=== PATIENT | female | born 1980 | race Two or more races ===

== ENCOUNTER 2020-08-05 04:34 | Emergency (ER) | payer SELFPAY ==
[~2020-08-05] VITALS: Ht 157.5 cm; Wt 88.6 kg
[2020-08-05 04:34] VITALS: BP 154/94
== END 2020-08-05 05:00 | disposition left against medical advice (07) ==
LOC: ER 04:34
DX: M54.5 Low back pain (principal); Z53.21 Procedure and treatment not carried out due to patient leaving prior to being seen by health care provider

== ENCOUNTER 2020-11-12 12:00 | Emergency (ER) | payer OTHER ==
[~2020-11-12] VITALS: Ht 157.5 cm; Wt 92.2 kg
[2020-11-12 12:52] VITALS: BP 167/88
[2020-11-12] MEDS ORDERED: LIDO:MAALOX 1:1 20 ML SINGLE DOSE. PO ONE (13:15)
[2020-11-12] MEDS ORDERED: IV NORMAL SALINE 1,000ML 1,000 ML IV ONE (13:15)
[2020-11-12] MEDS ORDERED: ONDANSETRON PF 4 MG/2 ML VIAL. IVP ONE (13:15)
[2020-11-12 13:41] LABS: BASO # 0.1 x10^3/uL (0.0-0.2); BASO % 1 % (0-3); EOS # 0.2 x10^3/uL (0.0-0.7); EOS % 3 % (0-3); HEMATOCRIT 39.6 % (36.0-47.0); HEMOGLOBIN 13.4 g/dL (12.0-15.5); LYMPH # 2.1 x10^3/uL (1.0-4.8); LYMPH % 23 % (24-48); MEAN CORPUSCULAR HEMOGLOBIN 29 pg (25-35); MEAN CORPUSCULAR HGB CONC 34 g/dL (31-37); MEAN CORPUSCULAR VOLUME 87 fL (79-100); MONO # 0.6 x10^3/uL (0.0-1.1); MONO % 6 % (0-9); NEUT # 6.1 x10^3uL (1.8-7.7); NEUT % 67 % (31-73); PLATELET COUNT 374 x10^3/uL (140-400); RED BLOOD COUNT 4.57 x10^6/uL (3.50-5.40); RED CELL DISTRIBUTION WIDTH 13.9 % (11.5-14.5); WHITE BLOOD COUNT 9.1 x10^3/uL (4.0-11.0)
[2020-11-12 13:54] LABS: ALBUMIN 3.8 g/dL (3.4-5.0); ALBUMIN/GLOBULIN RATIO 0.9 (1.0-1.7); CALCIUM 8.4 mg/dL (8.5-10.1); CREATININE 0.8 mg/dL (0.6-1.0); GFR 79.4; POTASSIUM 3.9 mmol/L (3.5-5.1); TOTAL BILIRUBIN 0.5 mg/dL (0.2-1.0)
[2020-11-12] MEDS ORDERED: ESOM40CA PO (14:18)
[2020-11-12] MEDS ORDERED: ONDA4TAB7 PO (14:18)
--- NOTE | 2020-11-12 14:20 | PHYS DOC ---
Past History Past Medical History: No Pertinent History, Other Additional Past Medical Histor: prev back injury 4 yrs ago(no prob for 2 yrs) (SUMEET MEDINA APRN) Past Surgical History: , Tubal ligation, Other Additional Past Surgical Histo: bladder suspension (SUMEET MEDINA APRN) Alcohol Use: None (SUMEET MEDINA APRN) General Adult EDM: Chief Complaint: ABDOMINAL PAIN HPI: HPI: Patient is a-year-old female who presents with epigastric burning pain for the last 3 months. Patient states that pain is worse when she lays down. Patient states that she had some vomiting this morning and noticed blood in her vomit. Patient also reports diarrhea for the last 5 days. Patient states that she has been taking Tums, Mylanta and recently started taking Prilosec with little relief of symptoms. Patient reports she has a appointment with her PCP on Monday for a follow-up and possible GI consult. Patient denies health history. (SUMEET MEDINA APRN) Review of Systems: Review of Systems: Constitutional: Denies fever or chills Eyes: Denies change in visual acuity HENT: Denies nasal congestion or sore throat Respiratory: Denies cough or shortness of breath Cardiovascular: Denies chest pain or edema GI: Reports epigastric, burning, abdominal pain, nausea, vomiting,diarrhea : Denies dysuria Musculoskeletal: Denies back pain or joint pain Integument: Denies rash Neurologic: Denies headache, focal weakness or sensory changes Endocrine: Denies polyuria or polydipsia Lymphatic: Denies swollen glands Psychiatric: Denies depression or anxiety (SUMEET MEDINA APRN) Current Medications: Current Meds: Current Medications Medications (Trade) Dose Ordered Sig/[facility] Start Time Stop Time Status Last Admin Dose Admin Multi-Ingredient Mouthwash/Gargle (Gi Cocktail) 20 ml 1X ONCE 11/12/20 13:15 11/12/20 13:18 DC 11/12/20 13:32 20 ML Ondansetron HCl (Zofran) 4 mg 1X ONCE 11/12/20 13:15 11/12/20 13:18 DC 11/12/20 13:32 4 MG Sodium Chloride 1,000 ml @ 1,000 mls/hr 1X ONCE 11/12/20 13:15 11/12/20 14:14 11/12/20 13:33 1,000 MLS/HR (SUMEET MEDINA APRN) Allergies: Allergies: Allergies Coded Allergies Type Severity Reaction Last Updated Verified povidone-iodine Allergy Intermediate 08/05/20 Yes soap Allergy Intermediate 08/05/20 Yes (SUMEET MEDINA APRN) Physical Exam: PE: Constitutional: Well developed, well nourished, no acute distress, non-toxic appearance. [] HENT: Normocephalic, atraumatic, bilateral external ears normal, oropharynx moist, no oral exudates, nose normal. [] Eyes: PERRLA, EOMI, conjunctiva normal, no discharge. [] Neck: Normal range of motion, no tenderness, supple, no stridor. [] Cardiovascular:Heart rate regular rhythm, no murmur [] Lungs & Thorax: Bilateral breath sounds clear to auscultation [] Abdomen: Bowel sounds normal, soft, no tenderness, no masses, no pulsatile masses. [] Skin: Warm, dry, no erythema, no rash. [] Back: No tenderness, no CVA tenderness. [] Extremities: No tenderness, no cyanosis, no clubbing, ROM intact, no edema. [] Neurologic: Alert and oriented X 3, normal motor function, normal sensory function, no focal deficits noted. [] Psychologic: Affect normal, judgement normal, mood normal. [] (SUMEET MEDINA APRN) Current Patient Data: Labs: Laboratory Tests Test 11/12/20 13:30 White Blood Count 9.1 x10^3/uL (4.0-11.0) Red Blood Count 4.57 x10^6/uL (3.50-5.40) Hemoglobin 13.4 g/dL (12.0-15.5) Hematocrit 39.6 % (36.0-47.0) Mean Corpuscular Volume 87 fL (79-100) Mean Corpuscular Hemoglobin 29 pg (25-35) Mean Corpuscular Hemoglobin Concent 34 g/dL (31-37) Red Cell Distribution Width 13.9 % (11.5-14.5) Platelet Count 374 x10^3/uL (140-400) Neutrophils (%) (Auto) 67 % (31-73) Lymphocytes (%) (Auto) 23 % (24-48) L Monocytes (%) (Auto) 6 % (0-9) Eosinophils (%) (Auto) 3 % (0-3) Basophils (%) (Auto) 1 % (0-3) Neutrophils # (Auto) 6.1 x10^3uL (1.8-7.7) Lymphocytes # (Auto) 2.1 x10^3/uL (1.0-4.8) Monocytes # (Auto) 0.6 x10^3/uL (0.0-1.1) Eosinophils # (Auto) 0.2 x10^3/uL (0.0-0.7) Basophils # (Auto) 0.1 x10^3/uL (0.0-0.2) Sodium Level 141 mmol/L (136-145) Potassium Level 3.9 mmol/L (3.5-5.1) Chloride Level 105 mmol/L (98-107) Carbon Dioxide Level 25 mmol/L (21-32) Anion Gap 11 (6-14) Blood Urea Nitrogen 12 mg/dL (7-20) Creatinine 0.8 mg/dL (0.6-1.0) Estimated GFR (Cockcroft-Gault) 79.4 BUN/Creatinine Ratio 15 (6-20) Glucose Level 104 mg/dL (70-99) H Calcium Level 8.4 mg/dL (8.5-10.1) L Total Bilirubin 0.5 mg/dL (0.2-1.0) Aspartate Amino Transferase (AST) 38 U/L (15-37) H Alanine Aminotransferase (ALT) 52 U/L (14-59) Alkaline Phosphatase 113 U/L (46-116) Total Protein 8.0 g/dL (6.4-8.2) Albumin 3.8 g/dL (3.4-5.0) Albumin/Globulin Ratio 0.9 (1.0-1.7) L Lipase 57 U/L (73-393) L Vital Signs: Vital Signs Date Time Temp Pulse Resp B/P (MAP) Pulse Ox O2 Delivery O2 Flow Rate FiO2 11/12/20 12:52 98.3 116 20 167/88 (114) 96 (SUMEET MEDINA APRN) EKG: EKG: [] (SUMEET MEDINA APRN) Radiology/Procedures: Radiology/Procedures: [] (SUMEET MEDINA APRN) Heart Score: C/O Chest Pain: No Risk Factors: Risk Factors: DM, Current or recent (<one month) smoker, HTN, HLP, family history of CAD, obesity. Risk Scores: Score 0 - 3: 2.5% MACE over next 6 weeks - Discharge Home Score 4 - 6: 20.3% MACE over next 6 weeks - Admit for Clinical Observation Score 7 - 10: 72.7% MACE over next 6 weeks - Early Invasive Strategies (SUMEET MEDINA APRN) Course & Med Decision Making: Course & Med Decision Making Pertinent Labs and Imaging studies reviewed. (See chart for details) [] 40-year-old female presents with epigastric, burning pain for 3 months. Patient also reports nausea/vomiting/diarrhea. Patient given GI cocktail and Zofran. Patient reports that nausea has improved but she still has a burning sensation in her upper abdomen. All labs are unremarkable. Patient is hemodynamically stable. Patient most likely has GERD. Explained to patient the importance of following up with PCP so that she can get further testing done by GI. Patient has an appointment on Monday with her PCP for consultation and GI consult. Sending patient home with a prescription for Nexium and also Zofran. Discussed results with patient. Educated patient on return precautions. Patient is appreciative and okay with discharge plan. (SUMEET MEDINA APRN) Course & Med Decision Making I oversaw on the above date of service of this patient. This patient was evaluated, examined, treated, and dispositioned from the emergency department by the mid-level practitioner. Although I was working at the time and available for consultation, no assistance was requested and I did not see or immediately direct the care of this patient. I reviewed note and agree to findings, plan of care, and disposition as stated. Electronically signed, Breanna Askew DO (BREANNA ASKEW DO) Tessa Disclaimer: Tessa Disclaimer: This electronic medical record was generated, in whole or in part, using a voice recognition dictation system. (SUMEET MEDINA APRN) Departure Departure: Impression: Primary Impression: GERD (gastroesophageal reflux disease) Qualified Codes: K21.9 - Gastro-esophageal reflux disease without esop hagitis Additional Impressions: Nausea & vomiting Qualified Codes: R11.2 - Nausea with vomiting, unspecified Diarrhea Qualified Codes: R19.7 - Diarrhea, unspecified Disposition: HOME / SELF CARE / HOMELESS Condition: STABLE Referrals: PCP,UNKNOWN (PCP) Patient Instructions: Nausea and Vomiting, [id number] Additional Instructions: You were seen in the emergency room for burning epigastric pain, nausea/vomiting/diarrhea. You were given a GI cocktail and Zofran. Scripts Esomeprazole Magnesium (NEXIUM CAPSULE) 40 Mg Capsule.dr 1 CAP PO DAILY for gerd for 30 Days, #30 CAP 5 Refills Prov: SUMEET MEDINA APRN 11/12/20 Ondansetron Hcl (ZOFRAN) 4 Mg Tablet 4 MG PO TID PRN PRN for NAUSEA, #9 TAB Prov: SUMEET MEDINA APRN 11/12/20 SUMEET MEDINA APRN Nov 12, 2020 14:20 BREANNA ASKEW DO Nov 13, 2020 07:27
[2020-11-12 14:56] LABS: U PREG PATIENT NEGATIVE (NEG)
[2020-11-12 14:59] LABS: BILIRUBIN,URINE NEG (NEG); CLARITY,URINE CLEAR; COLOR,URINE YELLOW; GLUCOSE,URINE NEG (NEG); NITRITE,URINE NEG (NEG); UROBILINOGEN,URINE 0.2 mg/dL (0.2 mg/dL)
[2020-11-12 15:05] LABS: BACTERIA,URINE FEW /HPF (0-FEW); SQUAMOUS EPITHELIAL CELL,UR OCC /LPF
== END 2020-11-12 15:01 | disposition home or self-care (01) ==
LOC: ER 12:00
DX: K21.9 Gastro-esophageal reflux disease without esophagitis (principal); R11.2 Nausea with vomiting, unspecified; R19.7 Diarrhea, unspecified; Z98.51 Tubal ligation status
CPT/HCPCS: 36415; 80053; 81001; 81025; 83690; 85025; 96361; 96374; 99283; J2405; J7030